=== PATIENT | female | born 1980 | race Caucasian/White ===

== ENCOUNTER 2021-10-05 11:49 | Emergency (ER) | payer BC, MEDICAID | END 2021-10-05 13:00 | disposition home or self-care (01) | LOC: FB.ED 11:49 | DX: K52.9 Noninfective gastroenteritis and colitis, unspecified (principal); Z88.2 Allergy status to sulfonamides; Z72.0 Tobacco use | CPT/HCPCS: 36415; 80048; 99281; 99284 ==